=== PATIENT | female | born 1965 | race Caucasian/White ===

== ENCOUNTER → 2020-06-11 | Outpatient (CLI) | payer OTHER ==
[~2020-06-11] MED LIST: BUPR300T49 PO; ESTR1PAT25 TD; PROG100C16 PO
== END | disposition home or self-care (01) ==
LOC: STAR 15:00
PROVIDERS: ATTEND Otolaryngology
DX: Z20.828 Contact with and (suspected) exposure to other viral communicable diseases (principal); Q74.0 Other congenital malformations of upper limb(s), including shoulder girdle
CPT/HCPCS: 87635

== ENCOUNTER → 2020-07-01 | Outpatient (CLI) | payer OTHER | END | disposition home or self-care (01) | LOC: STAR 13:27 | PROVIDERS: ATTEND Anesthesiology | DX: Z20.828 Contact with and (suspected) exposure to other viral communicable diseases (principal) | CPT/HCPCS: 87635 ==

== ENCOUNTER 2020-07-06 07:11 | Day surgery (SDC) | payer OTHER ==
[~2020-07-06] VITALS: Ht 160 cm; Wt 60.0 kg
[~2020-07-06 07:11] MED LIST changes: +BUPIVACAINE/PF 0.5% ONE; +EPINEPHRINE 1 MG/ML, 1ML ONE; +LIDOCAINE 1%, 20ML ONE
[2020-07-06 07:56] VITALS: BP 128/75
[2020-07-06] MEDS ORDERED: LACTATED RINGERS 1,000 ML IV SCH (08:00)
[2020-07-06] MEDS ORDERED: CHLORHEXIDINE 15 ML UDC MM ONE (08:00)
[2020-07-06] MEDS ORDERED: FENTANYL PF 250 MCG/5ML ONE (08:33)
[2020-07-06] MEDS ORDERED: BUPIVACAINE/PF 0.5% INFIL ONE (09:20)
[2020-07-06] MEDS ORDERED: hydrALAzine 20 MG/ML, 1ML IV PRN (09:30)
[2020-07-06] MEDS ORDERED: ONDANSETRON 2MG/ML, 2ML IVPush PRN (09:30)
[2020-07-06] MEDS ORDERED: ACETAMINOPHEN 325 MG TABLET PO PRN (09:30)
[2020-07-06] MEDS ORDERED: LABETALOL 5MG/ML, 20ML IV PRN (09:30)
[2020-07-06] MEDS ORDERED: OXYcodone 5 MG/5 ML ORAL.SOL UDC PO PRN (09:30)
[2020-07-06] MEDS ORDERED: ESMOLOL 100 MG/10 ML ONE (10:23)
[2020-07-06] MEDS ORDERED: FENTANYL PF 100 MCG/2ML ONE ×2 (10:24→10:39)
[2020-07-06] MEDS: FENTANYL PF 100 MCG/2ML IV PRN ×4 (10:29→10:56)
[2020-07-06] MEDS ORDERED: HYDROmorphone 1 MG/ML, 1ML INJ ONE (10:39)
[2020-07-06] MEDS ORDERED: OXYcodone 5 MG/5 ML ORAL.SOL UDC ONE (10:39)
[2020-07-06] MEDS: HYDROmorphone 1 MG/ML, 1ML INJ IVPush PRN ×2 (10:42→10:50)
[2020-07-06] MEDS ORDERED: DEXAMETHASONE 4 MG/ML, 1ML ONE (11:06)
[2020-07-06] MEDS ORDERED: PROPOFOL 10 MG/ML, 20ML ONE (11:06)
[2020-07-06] MEDS ORDERED: ONDANSETRON 2MG/ML, 2ML ONE (11:06)
[2020-07-06] MEDS ORDERED: CEFAZOLIN 1,000 MG ONE (11:06)
== END 2020-07-06 11:50 | disposition home or self-care (01) ==
LOC: OUT 07:11
PROVIDERS: ATTEND Orthopaedic Surgery Hand Surgery
DX: Q74.0 Other congenital malformations of upper limb(s), including shoulder girdle (principal); F41.9 Anxiety disorder, unspecified; Z79.899 Other long term (current) drug therapy; Z91.041 Radiographic dye allergy status
CPT/HCPCS: 25390; 73100; C1713; J0690; J1100; J1170; J2405; J2704; J3010; J7120; 76000; J0171